=== PATIENT | male | born 1945 | race Caucasian/White ===

== ENCOUNTER 2017-01-11 18:03 | Emergency (ER) | payer OTHER ==
[2017-01-11 18:16] VITALS: BMI 33.0
[2017-01-11] MEDS ORDERED: ADACEL TDaP IM ONE ×2 (18:56→19:05)
[2017-01-11] MEDS ORDERED: TORADOL 60 MG VIAL IM ONE (18:56)
--- NOTE | 2017-01-11 19:00 | RAD ---
Right hand, three views Indication: Fall with pain and swelling to the long finger Comparison: None Findings: There is posterior dislocation of the long finger at the PIP joint. No definite associated fracture is identified. Moderate degenerative changes of the distal as well as proximal interphalange al joints of the hand are noted. No additional acute osseous abnormality is seen. Impression: Posterior dislocation of the long finger PIP joint without definite associated fracture. Reported By:
--- NOTE | 2017-01-11 19:00 | DR.EXTPAIN ---
HPI - Time seen Time seen: 18:57 - PCP Primary Care Physician: KWADWO BASHIR - Complaint/Symptoms Chief Complaint Doctor Comments: Patient states he was going up the steps at home and the railing were not replaced after he redone the porch and he lost his balance and fell on his right hand injuring the third finger. states his 3rd finger is swollen and has bruising with pain on movement. He denies head or neck pain. States the pain is 8 of 10. States he has a bruise on his right knee but has been able to walk without problems after the fall. Chief Complaint:: PT HAS HX OF STROKES AND PT FELL AND C/O RIGHT HAND AND THAT HE FELL AND HIS HAS BRUISES TO HIS RIGHT BIRD FINGER AND HE WANTS IT CHECKED TO SEE IF IT IS BROKE . - Nurses notes reviewed Nurses Notes Review: Yes - Source History Provided: Patient - Mode of arrival Mode of Arrival: Ambulatory - Timing Onset of Chief Complaint: 01/11/17 - Context History of: None - Associated signs and symptoms Associated Signs and Symptoms: None, Abrasion (right knee), Pain, Bruising PMH - PMH Past Medical History: Yes Past Medical History: Dyslipidemia, Hypertension Past Surgical History: Yes Surgical History: Ortho Surgery Past Surgical History Comment: CATARACT - Family History History of Family Medical Conditions: No - Social History Does patient currently use any type of tobacco product: No Have you used tobacco products in the last 12 months: No Type of Tobacco Use: None Does any household member use tobacco: No Alcohol Use: None Do you use any recreational Drugs:: No Lives With: Family Lives Where: Home - infectious screening In the last 2 months have you had wt loss of >10#?: NO Have you had fever, night sweats or hemotysis?: No Have you traveled outside the country in the last 6 months?: No Isolation: Standard ROS - Review of Systems Constitutional: No Symptoms Reported Eyes: No Symptoms Reported. negative: See HPI, Eye Pain, Blurred Vision, Tearing, Discharge, Photophobia, Diplopia, Other ENTM: No Symptoms Reported Respiratoy: No Symptoms Reported Cardiovascular: No Symptoms Reported. negative: See HPI, Chest Pain, Edema, Palpitations, Syncope, Cyanosis, Skin Mottling, Other Gastrointestinal/Abdominal: No Symptoms Reported. negative: See HPI, Abdominal Pain, Constipation, Diarrhea, Nausea, Vomiting, Food Intolerance, Other Genitourinary: No Symptoms Reported Neurological: No Symptoms Reported. negative: See HPI, Anxiety, Depressed, Emotional Problems, Headache, Numbness, Paresthesia, Pre-existing Deficit, Seizure, Tingling, Tremors, Weakness, Dizziness, Problems Walking, Speech Problem, Other Musculoskeletal: No Symptoms Reported, Right, Hand (3rd finger with pain and swelling) Integumentary: No Symptoms Reported Hematologic/Lymphatic: No Symptoms Reported Endocrine: No Symptoms Reported. negative: See HPI, Excessive Sweating, Flushing, Intolerance to Cold, Intolerance to Heat, Increased Hunger, Increased Thirst, Increased Urine, Unexplained Weight Gain, Unexplained Weight Loss, Failure to Thrive, Decreased Appetite, Other Psychiatric: No Symptoms Reported PE - Vital Signs Vitals: Temperature 98.1 F Pulse Rate 58 Respiratory Rate 20 Blood Pressure [Right Arm] 137/69 Blood Pressure 131/80 O2 Sat by Pulse Oximetry 98 - General Limitations: No Limitations General Appearance: Alert, In Distress (moderate) - Head Head Exam: Normal Inspection, Atraumatic, Normocephalic - Eyes Eye exam: Normal Appearance, PERRL, EOMI. negative: Scleral Icterus, Conjunctival Injection, Nystagmus, Miosis, Mydrasis, Periorbital Swelling, Periorbital Tenderness, Other - ENT ENT Exam: Normal Exam, Normal Oropharynx, Normal External Ear Exam, Mucous Membranes Moist, TM's Normal Bilaterally - Neck Neck Exam: Normal Inspection, Full ROM, Trachea Midline - Chest Chest Inspection: Normal Inspection, Symmetric Chest Wall Rise - Respiratory Respiratory Exam: Normal Lung Sounds Bilat Respiratory Exam: Bilateral Clear to Auscultation - Cardiovascular Cardiovascular Exam: Regular Rate, Normal Rhythm, Normal Heart Sounds - Abdominal Exam Abdominal Exam: Normal Inspection, Normal Bowel Sounds, Soft. negative: Distention, Tenderness, Guarding, Rebound, Rigidity, Dimnished Bowel Sounds, Hyperactive Bowel Sounds, Hypoactive Bowel Sounds, Organomegaly, Trauma, Incision, Ascites, Mass, Bruit, Pulsatile Mass, Hernia, Other Abdominal Tenderness: negative: RUQ, RLQ, LUQ, LLQ, Epigastrium, Suprapubic, Diffuse, Mild, Moderate, Severe, Other - Extremities Extremities Exam: Normal Inspection, Full ROM, Tenderness (right hand tender 3rd finger with swelling and ecchymosis), Normal Capillary Refill - Upper Extremities Shoulder Exam: Normal Inspection, Full ROM. negative: Tenderness, Swelling, Abrasion, Laceration, Ecchymosis, Deformity, Crepitus, Dislocation, Erythema, Tenderness over AC Joint, Other Arm Exam: Normal Inspection, Full ROM. negative: Tenderness, Swelling, Abrasion , Laceration, Ecchymosis, Deformity, Crepitus, Erythema, Other Elbow Exam: Normal Inspection, Full ROM. negative: Tenderness, Swelling, Abrasion, Laceration, Ecchymosis, Deformity, Crepitus, Dislocation, Erythema, Effusion, Pain w/ pronation, Pain w/ Spuination, Tenderness over Radial Head, Other Forearm Exam: Normal Inspection, Full ROM. negative: Tenderness, Swelling, Abrasion, Laceration, Ecchymosis, Deformity, Crepitus, Erythema, Dislocation, Other Hand Exam: Normal Inspection, Full ROM, Tenderness (right hand 3rd finger) Neuromotor Exam: Normal Exam Neurosensory Exam: Normal Exam Upper Ext. Vascular Exam: Capillary Refill (normal), Radial Pulse (normal) - Lower Extremities Hip/Pelvis Exam: Normal Inspection, Full ROM, Tenderness Upper Leg Exam: Normal Inspection, Full ROM. negative: Tenderness, Swelling, Abrasion, Laceration, Ecchymosis, Deformity, Crepitus, Dislocation, Erythema, Other Knee Exam: Normal Inspection, Full ROM, Abrasion (right knee with superficial abrasion ). negative: Tenderness, Swelling, Laceration, Ecchymosis, Deformity, Crepitus, Dislocation, Erythema, Effusion, Anterior Drawer Sign, Posterior Draw Sign, Pain with Valgus, Laxity with Valgus, Pain with Varus, Knee Extension Intact, Other Lower Leg Exam: Normal Inspection Ankle Exam: Normal Inspection, Full ROM. negative: Tenderness, Swelling, Abrasion, Laceration, Ecchymosis, Deformity, Crepitus, Dislocation, Erythema, Tenderness over talofibular lig, Anterior Draw Sign, Other Foot/Toe Exam: Normal Inspection, Full ROM. negative: Tenderness, Swelling, Abrasion, Laceration, Ecchymosis, Deformity, Crepitus, Dislocation, Erythema, Amputation, Puncture Wound, Foreign Body, Calcaneal Tenderness, Nail Avulsion, Other Neurovascular/Tendon Exam: Normal Capillary Refill. negative: Pulse Deficit, Motor Deficit, Sensory Deficit, Tendon Deficit, Extremity Cold to Touch, Pallor , Normal 2-point discrimination, Normal Fine/Light Touch, Foot Drop, Peroneal Nerve Deficit, Other Gait Exam: Observed and Normal - Back Back Exam: Normal Inspection, Full ROM - Neurological Neurological Exam: Alert, Oriented X3, CN II-XII Intact, Normal Gait, Reflexes Normal - Psychiatric Psychiatric Exam: Normal Affect, Normal Mood - Skin Skin Exam: Warm, Dry, Intact, Normal Color Distribution: Generalized. negative: Involves Palms/Soles, Head, Face, Neck, Thorax, Chest, Back, Abdomen, Genitals, LUE, LLE, RUE, RLE, Other Description: negative: Size, Tenderness, Erythematous, Swelling, Macular, Papular, Vesicular, Blisters, Cofluent, Bullous, Petechial, Purpuric, Urticarial , Crusting, Discharge, Fluctuant, Indurated, Other ROR - Labs Reviewed Laboratory Results Reviewed?: Yes (all x-ray results reviewed and discussed with patient) - XRAY XRAY Interpreted by: Radiologist (right hand: Posterior dislocation long finger ) Procedures - Splinting Location: right 3rd finger dislocation Pre-Made Type: metal Pre-Proc Neuro Vasc Exam: normal Post-Proc Neuro Vasc Exam: normal - Diagnosis Discharge Problem: Dislocation third finger Contusion of right hand including fingers Qualifiers: Encounter type: initial encounter Qualified Code(s): S60.221A - Contusion of right hand, initial encounter; S60.00XA - Contusion of unspecified finger without damage to nail, initial encounter; S60.00XA - Contusion of unspecified finger without damage to nail, initial encounter - Discharge Plan Disposition: HOME, SELF-CARE Condition: Stable Prescriptions: Acetaminophen/Codeine Tab [TYLENOL w/CODEINE #3 (300 MG/30 MG) *] 1 tab PO Q4- 6H PRN #24 tab PRN Reason: Pain - Follow ups/Referrals Follow ups/Referrals: KWADWO PALMER [Primary Care Provider] - 3 days VIC LAUREANO [STAFF PHYSICIAN] - 3 days - Instructions Instructions: Closed Reduction for Metacarpal Dislocation
[2017-01-11] MEDS ORDERED: TORADOL 60 MG VIAL ONE (19:05)
[2017-01-11 19:54] VITALS: BP 128/69
== END 2017-01-11 19:51 | disposition home or self-care (01) ==
LOC: ER 18:03
PROC: 2W38X1Z Immobilization of Right Upper Extremity using Splint (ICD-10-PCS; principal; 2017-01-11)
DX: S63.289A Dislocation of proximal interphalangeal joint of unspecified finger, initial encounter (principal); S60.221A Contusion of right hand, initial encounter; S60.00XA Contusion of unspecified finger without damage to nail, initial encounter; W19.XXXA Unspecified fall, initial encounter; Y92.009 Unspecified place in unspecified non-institutional (private) residence as the place of occurrence of the external cause
CPT/HCPCS: 73130; 90471; 96372; 99282; J1885

== ENCOUNTER 2017-03-04 10:14 | Emergency (ER) | payer OTHER ==
[2017-03-04 10:20] VITALS: BP 165/76; BMI 33.7
--- NOTE | 2017-03-04 11:29 | DR.GENAD ---
HPI - PCP Primary Care Physician: KWADWO PALMER - HPI Comment HPI Comment: PATIENT FEEL FEVERISH AT HOME. COUGH IS PRODUCTIVE, YELLOW SPUTUM. COUGH IS PERSISTENT AND HURT RIBS IN THE CHEST. WITH SIMILAR SYMTOMS. - Complaint/Symptoms Chief Complaint Doctors Comments: GENERALIZE BODY ACHES, COUGH, CONGESTION AND CHEST PAIN TIMES 3 DAYS. Chief Complaint:: PT. C/O BODY ACHES, COUGH, FEVER, CHILLS, RIB PAIN. PT. STATES "I'VE GOT FLU SYMTPOMS." - Nurses notes reviewed Nurses Notes Review: Yes - Source History Provided: Patient - Mode of Arrival Mode of Arrival: Ambulatory - Timing Onset of Chief Complaint: 03/01/17 Came on: Suddenly - Duration Duration: Constant Duration: Days - Severity Severity: Moderate PMH - PMH Past Medical History: Yes Past Medical History: Dyslipidemia, Hypertension Past Surgical History: Yes Surgical History: Ortho Surgery - Family History History of Family Medical Conditions: No - Social History Does patient currently use any type of tobacco product: No Have you used tobacco products in the last 12 months: No Type of Tobacco Use: None Does any household member use tobacco: No Alcohol Use: None Do you use any recreational Drugs:: No Lives With: Spouse Lives Where: Home - infectious screening In the last 2 months have you had wt loss of >10#?: NO Have you had fever, night sweats or hemotysis?: No Have you traveled outside the country in the last 6 months?: No Isolation: Standard ROS - Review of Systems Constitutional: Chills, Fever, Malaise, Weakness, Fatigue, Loss of Appetite. negative: Diaphoresis Eyes: negative: Eye Pain, Blurred Vision, Discharge, Photophobia ENTM: Nose Discharge, Nose Congestion, Throat Pain. negative: Ear Pain Respiratoy: Productive Cough, Short of Breath, Wheezing. negative: Hemoptysis Cardiovascular: Chest Pain. negative: Edema Gastrointestinal/Abdominal: Abdominal Pain. negative: Diarrhea, Nausea, Vomiting Genitourinary: No Symptoms Reported. negative: Dysuria, Frequency, Hematuria Neurological: Headache, Weakness, Dizziness Musculoskeletal: Back Pain, Muscle Pain Integumentary: No Symptoms Reported Hematologic/Lymphatic: No Symptoms Reported Endocrine: No Symptoms Reported All Other Systems: Reviewed and Negative PE - Vital Signs Vitals: Temperature 97.4 F Pulse Rate 69 Respiratory Rate 18 Blood Pressure [Right Arm] 128/69 Blood Pressure 165/76 O2 Sat by Pulse Oximetry 94 - General Limitations: No Limitations General Appearance: Alert - Head Head Exam: Normal Inspection - Eyes Eye exam: Normal Appearance - ENT ENT Exam: Normal Oropharynx External Ear Exam: Normal External Inspection TM/Canal Exam: Bilateral Normal Nose Exam: Normal Nose Exam Mouth Exam: Normal Inspection Throat Exam: Tonsillar Erythema - Neck Neck Exam: Trachea Midline - Chest Chest Inspection: Symmetric Chest Wall Rise - Respiratory Respiratory Exam: Normal Lung Sounds Bilat Respiratory Exam: Bilateral Clear to Auscultation - Cardiovascular Cardiovascular Exam: Regular Rate, Normal Rhythm, Normal Heart Sounds - Abdominal Exam Abdominal Exam: Normal Bowel Sounds, Soft. negative: Tenderness - Extremities Extremities Exam: Normal Inspection - Back Back Exam: Paraspinal Tenderness - Neurologic Neurological Exam: Alert, Oriented X3 - Psychiatric Psychiatric Exam: Normal Affect, Normal Mood - Skin Skin Exam: Normal Color MDM - Additional Information Additional Information Obtained From: Family - Differential Diagnosis Differential Diagnosis: BRONCHITIS,PNEUMONIA, INFLUENZA Course - Treatment Treatment: SEE ORDERS. - Education/Counseling Education/Counseling: Patient, Family, Education Educated On: Diagnosis, Needs for Follow Up ROR - Labs Reviewed Laboratory Results Reviewed?: Yes Result Diagrams: 03/04/17 11:37 03/04/17 11:37 Laboratory: WBC 6.6 X10^3/uL (3.6-10.0) 03/04/17 11:37 RBC 4.65 X10^6/uL (4.7-6.0) L 03/04/17 11:37 Hgb 14.1 g/dL (13.5-18.0) 03/04/17 11:37 Hct 41.5 % (42.0-54.0) L 03/04/17 11:37 MCV 89.1 fL (80.0-100.0) 03/04/17 11:37 MCH 30.2 pg (27.0-34.0) 03/04/17 11:37 MCHC 33.9 g/dL (33.0-35.0) 03/04/17 11:37 RDW 14.4 % (11.6-16.5) 03/04/17 11:37 Plt Count 124 X10^3/uL (150.0-450.0) L 03/04/17 11:37 MPV 8.3 fL (7.4-11.0) 03/04/17 11:37 Neut % 83.6 % (42.0-75.0) H 03/04/17 11:37 Lymph % 9.0 % (21.0-51.0) L 03/04/17 11:37 Garrard % 7.0 % (0.0-13.0) 03/04/17 11:37 Eos % 0.1 % (0.9-2.9) L 03/04/17 11:37 Baso % 0.3 % (0.2-1.0) 03/04/17 11:37 Neut # 5.5 x10^3/uL (2.2-4.8) H 03/04/17 11:37 Lymph # 0.6 X10^3/uL (1.3-2.9) L 03/04/17 11:37 Garrard # 0.5 x10^3/uL (0.3-0.8) 03/04/17 11:37 Eos # 0.0 x10^3/uL (0.0-0.2) 03/04/17 11:37 Baso # 0.0 X10^3/uL (0.0-0.1) 03/04/17 11:37 Absolute Nucleated RBC 0.0 /100WBC 03/04/17 11:37 Sodium 137 mmol/L (136-145) 03/04/17 11:37 Corrected Sodium TNP 03/04/17 11:37 Potassium 4.4 mmol/L (3.5-5.1) 03/04/17 11:37 Chloride 102 mmol/L (98-107) 03/04/17 11:37 Carbon Dioxide 25.5 mmol/L (21-32) 03/04/17 11:37 BUN 18 mg/dL (7-18) 03/04/17 11:37 Creatinine 1.37 mg/dL (0.70-1.30) H 03/04/17 11:37 Est GFR (MDRD) Af Amer > 60 (>60) 03/04/17 11:37 Est GFR (MDRD) Non-Af 54 (>60) L 03/04/17 11:37 Glucose 101 mg/dL (65-99) H 03/04/17 11:37 Calcium 8.5 mg/dL (8.5-10.1) 03/04/17 11:37 Corrected Calcium TNP 03/04/17 11:37 Total Bilirubin 0.40 mg/dL (0.2-1.0) 03/04/17 11:37 AST 50 Units/L (15-37) H 03/04/17 11:37 ALT 62 Units/L (12-78) 03/04/17 11:37 Alkaline Phosphatase 130 Units/L (46-116) H 03/04/17 11:37 Total Protein 7.1 g/dL (6.4-8.2) 03/04/17 11:37 Albumin 3.4 g/dL (3.4-5.0) 03/04/17 11:37 Globulin 3.7 g/dL (2.5-4.5) 03/04/17 11:37 Albumin/Globulin Ratio 0.9 Ratio (1.1-2.1) L 03/04/17 11:37 Influenza Type A (PCR) Positive (NEGATIVE) A 03/04/17 11:37 Influenza Type B (PCR) Negative (NEGATIVE) 03/04/17 11:37 - XRAY XRAY Interpreted by: Radiologist XRAY Findings: REPORT DISCUSS WITH PATIENT. - Diagnosis Discharge Problem: Influenza, Bronchitis - Discharge Plan Condition: Stable Prescriptions: Benzonatate [TESSALON PERLES *] 200 mg PO TID PRN #30 cap PRN Reason: Cough Doxycycline Monohydrate 100 mg PO BID #20 tablet Oseltamivir Phosphate [Tamiflu] 75 mg PO BID #10 cap - Follow ups/Referrals Follow ups/Referrals: KWADWO PALMER [Primary Care Provider] - 3 days - Instructions Instructions: Influenza, Adult, [id number], Acute Bronchitis, [id number] Additional Instructions: RETURN TO ED IF WORSE.
[2017-03-04 11:52] LABS: BASOPHILS % (AUTO) 0.3 % (0.2-1.0); EOSINOPHILS % (AUTO) 0.1 % (0.9-2.9); HEMATOCRIT 41.5 % (42.0-54.0); HEMOGLOBIN 14.1 g/dL (13.5-18.0); LYMPHOCYTES # (AUTO) 0.6 X10^3/uL (1.3-2.9); MEAN CORPUSCULAR HEMOGLOBIN 30.2 pg (27.0-34.0); MEAN CORPUSCULAR HGB CONC 33.9 g/dL (33.0-35.0); MEAN CORPUSCULAR VOLUME 89.1 fL (80.0-100.0); MEAN PLATELET VOLUME 8.3 fL (7.4-11.0); MONOCYTES # (AUTO) 0.5 x10^3/uL (0.3-0.8); NEUTROPHILS # (AUTO) 5.5 x10^3/uL (2.2-4.8); NEUTROPHILS % (AUTO) 83.6 % (42.0-75.0); PLATELET COUNT 124 X10^3/uL (150.0-450.0); RED BLOOD COUNT 4.65 X10^6/uL (4.7-6.0); RED CELL DISTRIBUTION WIDTH 14.4 % (11.6-16.5); WHITE BLOOD COUNT 6.6 X10^3/uL (3.6-10.0)
--- NOTE | 2017-03-04 11:57 | RAD ---
Examination: Chest, PA and lateral views History: Cough wheezing and fever Comparison reference 01/16/2016 Findings: Continued normal heart size with clear lungs and pleural spaces. Impression: No significant interval change or acute abnormality identified. Reported By:
[2017-03-04 12:03] LABS: ALANINE AMINOTRANSFERASE 62 Units/L (12-78); ALBUMIN 3.4 g/dL (3.4-5.0); ALKALINE PHOSPHATASE 130 Units/L (46-116); ASPARTATE AMINO TRANSFERASE 50 Units/L (15-37); BLOOD UREA NITROGEN 18 mg/dL (7-18); CALCIUM 8.5 mg/dL (8.5-10.1); CARBON DIOXIDE 25.5 mmol/L (21-32); CHLORIDE 102 mmol/L (98-107); CREATININE 1.37 mg/dL (0.70-1.30); SODIUM 137 mmol/L (136-145); TOTAL PROTEIN 7.1 g/dL (6.4-8.2); eGFR BLACK RACES > 60 (>60); eGFR NON BLACK RACES 54 (>60)
== END 2017-03-04 12:46 | disposition home or self-care (01) ==
LOC: ER 10:27
DX: J11.1 Influenza due to unidentified influenza virus with other respiratory manifestations (principal); J40 Bronchitis, not specified as acute or chronic
CPT/HCPCS: 36415; 71020; 80053; 85025; 87502; 99282; 99284